=== PATIENT | female | born 1970 | race Caucasian/White ===

== ENCOUNTER → 2017-08-22 | Outpatient (CLI) | payer OTHER ==
--- NOTE | 2017-08-23 11:54 | MM ---
Reason for exam: screening (asymptomatic). Last mammogram was performed 2 years and 1 month ago. History: Took hormonal contraceptives for 2 years. Physical Findings: A clinical breast exam by your physician is recommended on an annual basis and results should be correlated with mammographic findings. MG Screening Mammo w CAD Bilateral CC and MLO view(s) were taken. Prior study comparison: August 04, 2015, bilateral MG screening mammo w CAD. July 09, 2014, bilateral MG screening mammo w CAD. The breast tissue is heterogeneously dense. This may lower the sensitivity of mammography. Finding: There are typically benign round calcifications in the right breast. There is no discrete abnormality. ASSESSMENT: Negative, BI-RAD 1 RECOMMENDATION: Routine screening mammogram of both breasts in 1 year.
== END | disposition home or self-care (01) ==
LOC: RADMAMWWP 09:47
PROVIDERS: ATTEND Family Medicine
DX: Z12.31 Encounter for screening mammogram for malignant neoplasm of breast (principal)
CPT/HCPCS: 77067

== ENCOUNTER → 2017-09-18 | Outpatient (CLI) | payer OTHER ==
[2017-09-18 07:43] LABS: Blood Urea Nitrogen 21 mg/dL (7-17)
--- NOTE | 2017-09-18 09:30 | CT ---
EXAMINATION TYPE: CT chest w con DATE OF EXAM: 09/18/2017 COMPARISON: NONE HISTORY: Cough for [address] DLP: 205 mGycm. Automated Exposure Control for Dose Reduction was Utilized. TECHNIQUE: CT scan of the thorax is performed following with IV Contrast, patient injected with 100 mL of Omnipaque 300. FINDINGS: LUNGS: Seen best on coronal images is calcified 3 mm right upper lung nodule on coronal image 54. The re is dependent atelectasis in both lower lobes. There is additional linear atelectasis in the left l carmen base. There is small degree of right basilar linear atelectasis or scarring laterally. There is n o suspicious noncalcified parenchymal nodule or mass. There is no pleural effusion or pneumothorax se en bilaterally. No suspicious consolidation is present. MEDIASTINUM: There are no greater than 1 cm hilar or mediastinal lymph nodes. No cardiomegaly or pe ricardial effusion is seen. There is moderate concentric wall thickening in the left mid esophagus ne ar axial image 19 at pericarinal/subcarinal level and moderate to severe wall thickening in the dista l esophagus just above diaphragmatic hiatus near axial image 45. OTHER: Cholecystectomy clips are present. There is partial visualization of surgical clips right kendell l fossa from nephrectomy. IMPRESSION: Attention to esophagus, consider multifocal esophagitis, neoplasm distally cannot be excl uded. Clinical correlation advised. Consider direct visualization to further evaluate. No suspicious acute pulmonary process is seen.
== END ==
LOC: RADCTMAIN 06:58
PROVIDERS: ATTEND Family Medicine
DX: R05 Cough (principal); Z79.899 Other long term (current) drug therapy
CPT/HCPCS: 82565; 84520; 71260; 36415; Q9967

== ENCOUNTER 2018-03-18 06:52 | Inpatient (IN) | payer OTHER ==
[2018-03-18] MEDS ORDERED: ONDANSETRON 4 MG/2 ML VIAL IVP STA (07:11)
[2018-03-18] MEDS ORDERED: LORazepam 2 MG/ML INJ IV STA (07:11)
[2018-03-18] MEDS ORDERED: SODIUM CHLORIDE 0.9% 1,000 ML IV STA (07:11)
--- NOTE | 2018-03-18 07:14 | ED ---
General Adult HPI - General Chief complaint: Abdominal Pain Stated complaint: abd pain Time Seen by Provider: 03/18/18 07:07 Source: patient, RN notes reviewed Mode of arrival: ambulatory Limitations: no limitations - History of Present Illness Initial comments: 48-year-old female presented to the emergency room today with a chief complaint of abdominal pain that started last night. Patient does admit that she's had several bouts of nausea vomiting. Does admit to pain throughout the abdomen both upper and lower. Patient does admit that she's had a few bowel movements that have not been diarrhea. Patient does admit to previous abdominal surgeries. Patient is a poor historian unable to explain exactly what surgeries were performed. Does admit to history of brain tumor. Patient denies any other complaints currently. Patient denies any recent fever, chills, shortness of breath, chest pain, back pain, numbness or tingling, dysuria or hematuria, constipation or diarrhea, headaches or visual changes, or any other complaints. - Related Data Home Medications Medication Instructions Recorded Confirmed HYDROcodone/APAP 7.5-325MG [[place] 1 tab PO TID PRN 03/18/18 03/18/18 7.5-325] Allergies Allergy/AdvReac Type Severity Reaction Status Date / Time vitamin b Allergy Rash/Hives Uncoded 03/18/18 07:07 Review of Systems ROS Statement: Those systems with pertinent positive or pertinent negative responses have been documented in the HPI. ROS Other: All systems not noted in ROS Statement are negative. 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 No nystagmus. There is normal conjunctiva bilaterally. No signs of icterus. Ears, nose, mouth and throat: There are moist mucous membranes and no oral lesions. Neck: The neck is supple, there is no tenderness or JVD. Cardiovascular: There is a regular rate and rhythm. No murmur, rub or gallop is appreciated. Respiratory: Lungs are clear to auscultation, respirations are non-labored, breath sounds are equal. No wheezes, stridor, rales, or rhonchi. Gastrointestinal: Abdomen soft on palpation. Tender palpation epigastric and lower quadrants both left and right. No rebound, guarding or CVA tenderness. Musculoskeletal: Normal ROM, no tenderness. Strength 5/5. Sensation intact. Pulses equal bilaterally 2+. Neurological: A&O x 3. CN II-XII intact, There are no obvious motor or sensory deficits. Coordination appears grossly intact. Speech is normal. Skin: Skin is warm and dry and no rashes or lesions are noted. Psychiatric: Cooperative. Limitations: no limitations Course Vital Signs 03/18/18 03/18/18 06:56 10:15 Temperature 97.8 F Pulse Rate 96 70 Respiratory 18 16 Rate Blood Pressure 134/85 102/57 O2 Sat by Pulse 100 99 Oximetry Medical Decision Making - Medical Decision Making Patient reexamined at this time shows no signs of distress. Patient is resting comfortably. Patient's positive and reviewed. Patient's CT of the abdomen and pelvis does show possible small bowel obstruction versus ileus. Patient does admit to a bowel movement earlier this morning. Patient's had multiple surgeries in the past. She admits out of [place], [place]. Patient will be admitted to the hospital for SBO. Patient has seen Dr. Gray in the past - Lab Data Result diagrams: 03/18/18 07:36 03/18/18 07:36 Lab Results 03/18/18 03/18/18 03/18/18 Range/Units 07:36 07:36 09:20 WBC 10.2 (3.8-10.6) k/uL RBC 5.24 (3.80-5.40) m/uL Hgb 15.2 (11.4-16.0) gm/dL Hct 45.9 (34.0-46.0) % MCV 87.6 (80.0-100.0) fL MCH 29.1 (25.0-35.0) pg MCHC 33.2 (31.0-37.0) g/dL RDW 12.9 (11.5-15.5) % Plt Count 330 (150-450) k/uL Neutrophils % 84 % Lymphocytes % 12 % Monocytes % 3 % Eosinophils % 0 % Basophils % 0 % Neutrophils # 8.5 H (1.3-7.7) k/uL Lymphocytes # 1.2 (1.0-4.8) k/uL Monocytes # 0.3 (0-1.0) k/uL Eosinophils # 0.0 (0-0.7) k/uL Basophils # 0.0 (0-0.2) k/uL Sodium 137 (137-145) mmol/L Potassium 5.1 (3.5-5.1) mmol/L Chloride 108 H (98-107) mmol/L Carbon Dioxide 19 L (22-30) mmol/L Anion Gap 10 mmol/L BUN 13 (7-17) mg/dL Creatinine 0.83 (0.52-1.04) mg/dL Est GFR (CKD-EPI)AfAm >90 (>60 ml/min/1.73 sqM) Est GFR (CKD-EPI)NonAf 84 (>60 ml/min/1.73 sqM) Glucose 161 H (74-99) mg/dL Calcium 10.0 (8.4-10.2) mg/dL Total Bilirubin 0.7 (0.2-1.3) mg/dL AST 38 H (14-36) U/L ALT 24 (9-52) U/L Alkaline Phosphatase 105 (38-126) U/L Total Protein 7.2 (6.3-8.2) g/dL Albumin 4.3 (3.5-5.0) g/dL Amylase 96 (30-110) U/L Lipase 146 (23-300) U/L Urine Color Urine Appearance (Clear) Urine pH (5.0-8.0) Ur Specific [place] (1.001-1.035) Urine Protein (Negative) Urine Glucose (UA) (Negative) Urine Ketones (Negative) Urine Blood (Negative) Urine Nitrite (Negative) Urine Bilirubin (Negative) Urine Urobilinogen (<2.0) mg/dL Ur Leukocyte Esterase (Negative) Urine HCG, Qual Not Detected (Not Detectd) 03/18/18 Range/Units 09:20 WBC (3.8-10.6) k/uL RBC (3.80-5.40) m/uL Hgb (11.4-16.0) gm/dL Hct (34.0-46.0) % MCV (80.0-100.0) fL MCH (25.0-35.0) pg MCHC (31.0-37.0) g/dL RDW (11.5-15.5) % Plt Count (150-450) k/uL Neutrophils % % Lymphocytes % % Monocytes % % Eosinophils % % Basophils % % Neutrophils # (1.3-7.7) k/uL Lymphocytes # (1.0-4.8) k/uL Monocytes # (0-1.0) k/uL Eosinophils # (0-0.7) k/uL Basophils # (0-0.2) k/uL Sodium (137-145) mmol/L Potassium (3.5-5.1) mmol/L Chloride (98-107) mmol/L Carbon Dioxide (22-30) mmol/L Anion Gap mmol/L BUN (7-17) mg/dL Creatinine (0.52-1.04) mg/dL Est GFR (CKD-EPI)AfAm (>60 ml/min/1.73 sqM) Est GFR (CKD-EPI)NonAf (>60 ml/min/1.73 sqM) Glucose (74-99) mg/dL Calcium (8.4-10.2) mg/dL Total Bilirubin (0.2-1.3) mg/dL AST (14-36) U/L ALT (9-52) U/L Alkaline Phosphatase (38-126) U/L Total Protein (6.3-8.2) g/dL Albumin (3.5-5.0) g/dL Amylase (30-110) U/L Lipase (23-300) U/L Urine Color Yellow Urine Appearance Clear (Clear) Urine pH 8.5 H (5.0-8.0) Ur Specific [place] >1.050 H (1.001-1.035) Urine Protein Trace H (Negative) Urine Glucose (UA) Negative (Negative) Urine Ketones 2+ H (Negative) Urine Blood Negative (Negative) Urine Nitrite Negative (Negative) Urine Bilirubin Negative (Negative) Urine Urobilinogen <2.0 (<2.0) mg/dL Ur Leukocyte Esterase Negative (Negative) Urine HCG, Qual (Not Detectd) Disposition Clinical Impression: SBO (small bowel obstruction) Disposition: ADMITTED IP TO THIS [facility] Condition: Good Is patient prescribed a controlled substance at d/c from ED?: No Referrals: Ivan Bartlett Jr, DO [Primary Care Provider] - 1-2 days Time of Disposition: 10:36
[2018-03-18 07:51] LABS: Basophils % (A) 0 %; Eosinophils % (A) 0 %; HCT 45.9 % (34.0-46.0); HGB 15.2 gm/dL (11.4-16.0); Lymphocytes # (A) 1.2 k/uL (1.0-4.8); Lymphocytes % (A) 12 %; MCH 29.1 pg (25.0-35.0); MCHC 33.2 g/dL (31.0-37.0); MCV 87.6 fL (80.0-100.0); Mean Platelet Volume 7.5; Monocytes # (A) 0.3 k/uL (0-1.0); Monocytes % (A) 3 %; Neutrophils # (A) 8.5 k/uL (1.3-7.7); Neutrophils % (A) 84 %; Platelet Count 330 k/uL (150-450); RBC 5.24 m/uL (3.80-5.40); RDW 12.9 % (11.5-15.5); WBC 10.2 k/uL (3.8-10.6)
[2018-03-18 08:05] LABS: ALT 24 U/L (9-52); AST 38 U/L (14-36); Albumin 4.3 g/dL (3.5-5.0); Alkaline Phosphatase 105 U/L (38-126); Amylase 96 U/L (30-110); Anion Gap 10 mmol/L; Carbon Dioxide 19 mmol/L (22-30); Chloride 108 mmol/L (98-107); Glucose 161 mg/dL (74-99); Lipase 146 U/L (23-300); Sodium 137 mmol/L (137-145); Total Bilirubin 0.7 mg/dL (0.2-1.3); Total Protein 7.2 g/dL (6.3-8.2)
[2018-03-18 08:09] LABS: Blood Urea Nitrogen 13 mg/dL (7-17); Potassium 5.1 mmol/L (3.5-5.1)
--- NOTE | 2018-03-18 09:23 | CT ---
EXAMINATION TYPE: CT abdomen pelvis w con DATE OF EXAM: 03/18/2018 COMPARISON: None INDICATION: Abd pain, vomiting DLP: 1287 mGycm, Automated exposure control for dose reduction was used. CONTRAST: 100 mL of Isovue 300. Study performed without Oral Contrast TECHNIQUE: Axial images were obtained from above the diaphragm to the pubic rami in the axial plane a t 5 mm thick sections. Reconstructed images are reviewed on the computer in the coronal plane. FINDINGS: Limited CT sections are obtained the lung bases. There is some compressive atelectasis within the de pendent portions of the lung bases bilaterally. Small hiatal hernia may be present. CT ABDOMEN: Liver: Normal Spleen: Normal Pancreas: Normal Adrenal glands: The adrenal glands are normal. Gallbladder: Normal Kidneys: There is been a right nephrectomy. Left kidney appears normal without masses cysts or hydron ephrosis. No hydroureter is evident. Aorta: Vascular calcification is within the aorta. Inferior vena cava: Normal. CT PELVIS: There are multiple dilated small bowel loops containing fluid. No zone of transition is evident. Term inal ileum is slightly prominent. Air fluid in some fecal debris is within the colon colon is somewha t decompressed. Findings appear more suggestive for ileus. Partial small bowel obstruction could be c onsidered. Appendix: Normal as visualized. Urinary bladder: Normal. Genitourinary structures: Uterus and adnexal regions appear normal. Small to moderate amount of free fluid is within the cul-de-sac. Osseous structures: No suspicious lytic or sclerotic lesions. IMPRESSIONS: 1. Prominence of fluid-filled small bowel loops. Correlate for ileus. Partial small bowel obstructio n could be within the differential. Follow-up is recommended. Report was called to the emergency room PA by Dr. Angel by telephone at the time of interpretation.
[2018-03-18 09:28] LABS: Appearance,Urine Clear (Clear); Bilirubin,Urine Negative (Negative); Blood,Urine Negative (Negative); Color,Urine Yellow; Glucose,Urine (UA) Negative (Negative); Ketones,Urine 2+ (Negative); Leukocyte Esterase,Urine Negative (Negative); Nitrite,Urine Negative (Negative); PH, Urine 8.5 (5.0-8.0); Protein,Urine Trace (Negative); Urobilinogen,Urine <2.0 mg/dL (<2.0)
[2018-03-18 09:37] LABS: Specific Gravity,Urine >1.050 (1.001-1.035)
[2018-03-18] MEDS ORDERED: NALOXONE 0.4 MG/ML 1 ML VIAL IV PRN (10:37)
[2018-03-18] MEDS ORDERED: SODIUM CHLORIDE 0.9% 1,000 ML IV ONE (10:37)
[2018-03-18] MEDS ORDERED: LORazepam 2 MG/ML INJ IV PRN (10:37)
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
[2018-03-18 15:41] VITALS: BMI 25.0
[2018-03-18] MEDS: MORPHINE SULFATE 4 MG/ML SYRINGE IV PRN ×3 (15:43→23:38)
[2018-03-18] MEDS: FAMOTIDINE 20 MG/2 ML VIAL IV SCH (19:36)
[2018-03-19] MEDS: MORPHINE SULFATE 4 MG/ML SYRINGE IV PRN (03:40)
[2018-03-19] MEDS: ONDANSETRON 4 MG/2 ML VIAL IVP PRN ×2 (07:11→16:58)
[2018-03-19 07:47] LABS: Basophils % (A) 1 %; Eosinophils # (A) 0.1 k/uL (0-0.7); Eosinophils % (A) 1 %; HCT 36.4 % (34.0-46.0); Lymphocytes # (A) 2.2 k/uL (1.0-4.8); Lymphocytes % (A) 38 %; MCH 30.1 pg (25.0-35.0); MCHC 32.7 g/dL (31.0-37.0); Mean Platelet Volume 6.8; Monocytes # (A) 0.3 k/uL (0-1.0); Monocytes % (A) 5 %; Neutrophils # (A) 3.1 k/uL (1.3-7.7); Neutrophils % (A) 54 %; Platelet Count 210 k/uL (150-450); RBC 3.96 m/uL (3.80-5.40); RDW 13.7 % (11.5-15.5); WBC 5.8 k/uL (3.8-10.6)
[2018-03-19 07:50] LABS: ALT 27 U/L (9-52); AST 22 U/L (14-36); Alkaline Phosphatase 69 U/L (38-126); Anion Gap 5 mmol/L; Blood Urea Nitrogen 9 mg/dL (7-17); Calcium 8.4 mg/dL (8.4-10.2); Carbon Dioxide 22 mmol/L (22-30); Chloride 112 mmol/L (98-107); Glucose 85 mg/dL (74-99); HGB 11.9 gm/dL (11.4-16.0); Potassium 4.1 mmol/L (3.5-5.1); Sodium 139 mmol/L (137-145); Total Bilirubin 0.3 mg/dL (0.2-1.3); Total Protein 5.1 g/dL (6.3-8.2)
[2018-03-19] MEDS: FAMOTIDINE 20 MG/2 ML VIAL IV SCH ×2 (08:43→20:35)
--- NOTE | 2018-03-19 09:14 | XR ---
EXAMINATION TYPE: XR abdomen 2V DATE OF EXAM: 03/19/2018 COMPARISON: NONE HISTORY: Abdominal pain TECHNIQUE: One view abdominal series FINDINGS: The osseous structures are intact. The bowel gas pattern is nonspecific. Air seen throughout both sm all and large bowel loops in a nonspecific pattern. Lung bases are clear. Surgical clips in the abdo men are noted. Hypertrophic and degenerative change of the lumbar spine. IMPRESSION: 1. Nonspecific abdomen.
--- NOTE | 2018-03-19 12:39 | XR ---
EXAMINATION TYPE: XR chest 2V DATE OF EXAM: 03/19/2018 COMPARISON: 09/18/2017 TECHNIQUE: PA and lateral views submitted. HISTORY: Shortness of breath and chest pain FINDINGS: The lungs are clear and there is no pneumothorax, pleural effusion, or focal pneumonia. Suggestion of tiny granuloma right upper lobe. IMPRESSION: 1. No acute process.
[2018-03-19] MEDS ORDERED: HYDROmorphone 1 MG/ML 1 ML SYRINGE IVP PRN (12:46)
--- NOTE | 2018-03-19 13:05 | P.PN ---
Subjective Progress Note Date: 03/19/18 Principal diagnosis: Bowel obstruction Patient says her pain is slightly more today. She is however passing flatus. No bowel movement. Denies nausea or vomiting. She is hungry. Today's x-rays are nonspecific. Objective - Vital Signs Vital signs: Vital Signs Temp 96.9 F L 03/19/18 07:00 Pulse 69 03/19/18 07:00 Resp 16 03/19/18 07:00 BP 113/74 03/19/18 07:00 Pulse Ox 99 03/19/18 07:00 Intake & Output 03/18/18 03/19/18 03/19/18 18:59 06:59 18:59 Intake Total 1600 Balance 1600 Weight 72.575 kg Intake: Intake, IV Titration 1600 Amount Sodium Chloride 0.9% 1, 1600 000 ml @ 100 mls/hr IV . Q10H ONE Rx#:[id number] Other: Voiding Method Toilet # Voids 3 - Exam Abdomen: Soft, nondistended, minimal bilateral lower quadrant tenderness - Labs CBC & Chem 7: 03/19/18 06:47 03/19/18 06:47 Labs: Abnormal Lab Results - Last 24 Hours (Table) 03/19/18 Range/Units 06:47 Chloride 112 H (98-107) mmol/L Total Protein 5.1 L (6.3-8.2) g/dL Albumin 3.0 L (3.5-5.0) g/dL Assessment and Plan (1) SBO (small bowel obstruction) Narrative/Plan: Begin clear liquid diet. Ambulate. Will follow. Current Visit: Yes Status: Acute Code(s): K56.609 - UNSP INTESTNL OBST, UNSP TO PARTIAL VERSUS COMPLETE OBST SNOMED Code(s): 156996909
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
[2018-03-19] MEDS ORDERED: HYDROmorphone 1 MG/ML 1 ML SYRINGE IVP ONE (14:11)
[2018-03-19] MEDS: HYDROcodone/APAP 7.5-325MG 1 EACH TAB PO PRN (16:23)
[2018-03-19] MEDS: SODIUM CHLORIDE 0.9% 1,000 ML IV SCH (18:59)
[2018-03-20] MEDS: SODIUM CHLORIDE 0.9% 1,000 ML IV SCH (05:11)
[2018-03-20] MEDS: FAMOTIDINE 20 MG/2 ML VIAL IV SCH (08:50)
[2018-03-20] MEDS: HYDROcodone/APAP 7.5-325MG 1 EACH TAB PO PRN (08:51)
[2018-03-20 10:00] VITALS: BP 120/78; PULSE 88; RESP 18; TEMP 97
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
--- NOTE | 2018-03-20 14:58 | P.PN ---
Subjective Progress Note Date: 03/20/18 Principal diagnosis: Bowel obstruction Patient doing well today. Denies pain currently. Tolerating solid foods. Passing gas but no bowel movement. Objective - Vital Signs Vital signs: Vital Signs Temp 97.0 F L 03/20/18 09:00 Pulse 88 03/20/18 09:00 Resp 18 03/20/18 09:00 BP 120/78 03/20/18 09:00 Pulse Ox 99 03/20/18 09:00 Intake & Output 03/19/18 03/20/18 03/20/18 18:59 06:59 18:59 Intake Total 1650 1350 Balance 1650 1350 Intake: Intake, IV Titration 1600 700 Amount Sodium Chloride 0.9% 1, 1600 700 000 ml @ 100 mls/hr IV . Q10H KIZZY Rx#:[id number] Oral 650 Other 50 Other: # Voids 1 3 2 - Exam Abdomen: Soft, nondistended, nontender - Labs CBC & Chem 7: 03/19/18 06:47 03/19/18 06:47 Assessment and Plan (1) SBO (small bowel obstruction) Narrative/Plan: Continue diet as tolerated. Stable for discharge as already planned. Patient was informed that she should return to the hospital if her symptoms recur given the findings of small bowel obstruction on initial CAT scan. Status: Acute Code(s): K56.609 - UNSP INTESTNL OBST, UNSP TO PARTIAL VERSUS COMPLETE OBST SNOMED Code(s): 612313934
== END 2018-03-20 14:00 | disposition home or self-care (01) | DRG 390 ==
LOC: EC 06:52 → 3SUR 11:00
PROVIDERS: ADMIT Family Medicine; ATTEND Family Medicine
DX: K56.600 Partial intestinal obstruction, unspecified as to cause (principal); J84.10 Pulmonary fibrosis, unspecified; K52.9 Noninfective gastroenteritis and colitis, unspecified; Z86.59 Personal history of other mental and behavioral disorders; Z86.011 Personal history of benign neoplasm of the brain; Z87.891 Personal history of nicotine dependence; Z88.8 Allergy status to other drugs, medicaments and biological substances; Z82.3 Family history of stroke; Z80.9 Family history of malignant neoplasm, unspecified
CPT/HCPCS: 36415; 71046; 74019; 74177; 80053; 81003; 81025; 82150; 83690; 85025; 96361; 96374; 96375; 99285

== ENCOUNTER → 2018-08-25 | Outpatient (CLI) | payer OTHER ==
--- NOTE | 2018-08-31 10:12 | MM ---
Reason for exam: screening (asymptomatic). Last mammogram was performed 1 year ago. History: Took hormonal contraceptives for 2 years. MG Screening Mammo w CAD Bilateral CC and MLO view(s) were taken. Prior study comparison: August 22, 2017, bilateral MG screening mammo w CAD. August 04, 2015, bilateral MG screening mammo w CAD. There are scattered fibroglandular densities. No significant changes when compared with prior studies. ASSESSMENT: Negative, BI-RAD 1 RECOMMENDATION: Routine screening mammogram of both breasts in 1 year.
== END ==
LOC: RADMAMWWP 16:49
PROVIDERS: ATTEND Family Medicine
DX: Z12.31 Encounter for screening mammogram for malignant neoplasm of breast (principal)
CPT/HCPCS: 77067

== ENCOUNTER → 2019-06-19 | Outpatient (CLI) | payer OTHER ==
[2019-06-19 19:33] LABS: African American GFR (CKD) 76.1 (60.0-200.0)
== END | disposition home or self-care (01) ==
LOC: LABWHC1 07:58
PROVIDERS: ATTEND Specialist
DX: D32.9 Benign neoplasm of meninges, unspecified (principal)
CPT/HCPCS: 36415; 82565; 84520

== ENCOUNTER → 2019-07-31 | Outpatient (CLI) | payer OTHER ==
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
== END | disposition home or self-care (01) ==
LOC: RADXRMAIN 10:11
PROVIDERS: ATTEND Family Medicine
DX: M25.512 Pain in left shoulder (principal); R07.82 Intercostal pain

== ENCOUNTER → 2019-08-28 | Outpatient (CLI) | payer OTHER ==
--- NOTE | 2019-08-31 13:16 | MM ---
Reason for exam: screening (asymptomatic). Last mammogram was performed 1 year ago. History: Patient is postmenopausal. Took hormonal contraceptives for 2 years. Physical Findings: A clinical breast exam by your physician is recommended on an annual basis and results should be correlated with mammographic findings. MG Screening Mammo w CAD Bilateral CC and MLO view(s) were taken. Prior study comparison: August 25, 2018, bilateral MG screening mammo w CAD. August 22, 2017, bilateral MG screening mammo w CAD. The breast tissue is heterogeneously dense. This may lower the sensitivity of mammography. No suspicious abnormality. No significant changes when compared with prior studies. ASSESSMENT: Negative, BI-RAD 1 RECOMMENDATION: Routine screening mammogram of both breasts in 1 year.
== END | disposition home or self-care (01) ==
LOC: RADMAMWWP 11:17
PROVIDERS: ATTEND Family Medicine
DX: Z12.31 Encounter for screening mammogram for malignant neoplasm of breast (principal)
CPT/HCPCS: 77067

== ENCOUNTER → 2020-07-04 | Outpatient (CLI) | payer OTHER ==
[2020-07-04 15:32] LABS: African American GFR (CKD) 75.5 (60.0-200.0); Non-African American GFR(CKD) 65.2 (60.0-200.0)
== END | disposition home or self-care (01) ==
LOC: LABWHC1 08:17
PROVIDERS: ATTEND Specialist
DX: D32.9 Benign neoplasm of meninges, unspecified (principal)
CPT/HCPCS: 36415; 82565; 84520

== ENCOUNTER → 2020-08-29 | Outpatient (CLI) | payer OTHER ==
--- NOTE | 2020-08-30 10:16 | MM ---
Reason for exam: screening (asymptomatic). Last mammogram was performed 1 year ago. History: Patient is postmenopausal. Took hormonal contraceptives for 2 years. Physical Findings: A clinical breast exam by your physician is recommended on an annual basis and results should be correlated with mammographic findings. MG Screening Mammo w CAD Bilateral CC and MLO view(s) were taken. Prior study comparison: August 28, 2019, bilateral MG screening mammo w CAD. August 25, 2018, bilateral MG screening mammo w CAD. The breast tissue is heterogeneously dense. This may lower the sensitivity of mammography. Benign appearing calcifications in the right breast. ASSESSMENT: Benign, BI-RAD 2 RECOMMENDATION: Routine screening mammogram of both breasts in 1 year.
== END | disposition home or self-care (01) ==
LOC: RADMAMWWP 10:23
PROVIDERS: ATTEND Family Medicine
DX: Z12.31 Encounter for screening mammogram for malignant neoplasm of breast (principal)
CPT/HCPCS: 77067

== ENCOUNTER → 2021-08-24 | Outpatient (CLI) | payer OTHER ==
--- NOTE | 2021-08-25 07:38 | CT ---
EXAMINATION TYPE: CT abdomen pelvis w con DATE OF EXAM: 08/24/2021 HISTORY: left flank pain. History of single kidney. CT DLP: 429.2mGycm Automated Exposure Control for Dose Reduction was Utilized. CONTRAST: CT scan of the abdomen and pelvis is performed with oral and with IV Contrast, patient injected with 100 mL of Isovue 300. COMPARISON: CT abdomen and pelvis March 18, 2018 FINDINGS: LUNG BASES: Mild left basilar linear scarring and/or atelectasis. LIVER/GB: Contracted gallbladder current study. No new biliary dilatation. PANCREAS: No significant abnormality is seen. SPLEEN: No significant abnormality is seen. ADRENALS: No significant abnormality is seen. KIDNEYS: Right kidney is surgically absent. Streak artifact from metallic clips at this level redemon strated. Satisfactory cortical medullary uptake and excretion from the left kidney with new moderate left-sided hydronephrosis but no hydroureter or obstructing calculus identified. BOWEL: Oral contrast does not reach level of the terminal ileum. This makes evaluation of distal mirela l somewhat suboptimal. In addition patient has little intra-abdominal fat making evaluation suboptima l. No suspicious small or large bowel dilatation. UTERUS/ADNEXA: Anteverted uterus redemonstrated. LYMPH NODES: No greater than 1cm abdominal or pelvic lymph nodes are appreciated. OSSEOUS STRUCTURES: Persistent slight scoliotic curvature lower lumbar spine. Persistent severe disc space narrowing with endplate sclerosis right L4-L5 level. Persistent moderate to severe disc space n arrowing with vacuum disc phenomenon at the left L5-S1 level. OTHER: No significant additional abnormality is seen. IMPRESSION: New moderate left-sided hydronephrosis without hydroureter or obstructing ureter mass or calculus. Consider reflux?. Normal excretion is noted. No acute findings are evident to account for p lizeth's clinical symptoms.
== END | disposition home or self-care (01) ==
LOC: RADCTMAIN 16:09
PROVIDERS: ATTEND Family Medicine
DX: N13.30 Unspecified hydronephrosis (principal)
CPT/HCPCS: 82565; 84520; 74177; 36415; Q9967

== ENCOUNTER → 2021-10-06 | Outpatient (CLI) | payer OTHER ==
--- NOTE | 2021-10-10 08:55 | MM ---
Reason for exam: screening (asymptomatic). Last mammogram was performed 1 year and 1 month ago. History: Patient is postmenopausal. Took hormonal contraceptives for 2 years. Physical Findings: A clinical breast exam by your physician is recommended on an annual basis and results should be correlated with mammographic findings. MG 3D Screening Mammo W/Cad Bilateral CC and MLO view(s) were taken. Prior study comparison: August 29, 2020, bilateral MG screening mammo w CAD. August 28, 2019, bilateral MG screening mammo w CAD. The breast tissue is heterogeneously dense. This may lower the sensitivity of mammography. No significant changes when compared with prior studies. ASSESSMENT: Benign, BI-RAD 2 RECOMMENDATION: Routine screening mammogram of both breasts in 1 year.
== END | disposition home or self-care (01) ==
LOC: RADMAMWWP 11:36
PROVIDERS: ATTEND Family Medicine
DX: Z12.31 Encounter for screening mammogram for malignant neoplasm of breast (principal); Z78.0 Asymptomatic menopausal state
CPT/HCPCS: 77063; 77067

== ENCOUNTER → 2021-12-22 | Outpatient (CLI) | payer OTHER ==
--- NOTE | 2021-12-22 09:00 | US ---
EXAMINATION TYPE: US kidneys/renal and bladder DATE OF EXAM: 12/22/2021 COMPARISON: CT 08/24/2021 CLINICAL HISTORY: N13.39 Hydronephrosis. EXAM MEASUREMENTS: Right Kidney: Surgically absent Left Kidney: 14.3 x 4.9 x 5.3 cm Post Void Residual Volume: 6.47 mL Right Kidney: Surgically absent Left Kidney: hydroureter noted even post void Bladder: wnl Bilateral Jets seen: left jet seen Normal Post Void Residual: Yes IMPRESSION: Left-sided hydroureter noted.
== END | disposition home or self-care (01) ==
LOC: RADUSWWP 08:24
DX: N13.4 Hydroureter (principal)
CPT/HCPCS: 76770

== ENCOUNTER → 2022-03-26 | Outpatient (CLI) | payer OTHER ==
--- NOTE | 2022-03-30 19:19 | MR ---
EXAMINATION TYPE: MR brain wo/w con DATE OF EXAM: 03/26/2022 COMPARISON: 05/25/2015, 08/24/2020 HISTORY: Yearly f/u, BENIGN NEOPLASM OF MENINGES, UNSPECIFIED CONTRAST: Performed utilizing 6 mL intravenous Gadavist gadolinium contrast. TECHNIQUE: Multiplanar, multiecho imaging on a 3.0 Julianne magnet is performed through the brain. Stud y is performed within 24 hours of arrival to the hospital. The craniovertebral junction is normal. The pituitary is normal. Diffusion-weighted imaging is performed. No abnormal hyperintensity is present to suggest an acute i ntracranial infarct or acute ischemic change. There is a 1.6 x 1.6 cm meningioma along the right frontal region. There is a 1.6 x 1.0 cm meningioma along the right parietal region. This measures 1.3 cm AP and is st able from comparison. There is a 1.9 x 1.7 cm left cerebellar pontine angle meningioma. This may have extension towards the internal auditory canal. There is a 0.7 cm enhancing lesion along the inferior right falx. These have enhancement in the extra-axial space and have displacement of the adjacent brain. No signi ficant edema is within the brain. Postsurgical changes remain present within the left mastoid air cell region and left temporal region. There is some encephalomalacia of the adjacent left temporal lobe. Ventricles and sulci remain stable over the interval. Note temporal horn dilatation is evident. Signa l within the remaining portions of the brain appears normal. IMPRESSIONS: 1. Multiple bilateral enhancing lesions compatible with meningiomas discussed above. No interval grow th is evident. No significant mass effect on the adjacent brain is evident. The cerebellar pontine an gle postsurgical changes remain stable
== END | disposition home or self-care (01) ==
LOC: RADMRIMAIN 09:27
PROVIDERS: ATTEND Specialist
DX: D32.9 Benign neoplasm of meninges, unspecified (principal); G93.89 Other specified disorders of brain
CPT/HCPCS: 70553; A9585

== ENCOUNTER → 2022-11-01 | Outpatient (CLI) | payer OTHER ==
--- NOTE | 2022-11-01 12:40 | MM ---
Reason for Exam: Screening (asymptomatic). Last mammogram was performed 1 year(s) and 1 month(s) ago. Patient History: Menarche at age 11. First Full-Term at age 15. Postmenopausal. Patient used Hormonal Contraceptives for 2 years. Risk Values: Angela 5 year model risk: 0.8%. NCI Lifetime model risk: 6.2%. Prior Study Comparison: 08/28/2019 Bilateral Screening Mammogram, [facility]. 08/29/2020 Bilateral Screening Mammogram, [facility]. 10/06/2021 Bilateral Screening Mammogram, [facility]. Tissue Density: There are scattered fibroglandular densities. Findings: Analyzed By CAD. There is no suspicious group of microcalcifications or new suspicious mass in either breast. Overall Assessment: Negative, BI-RAD 1 Management: Screening Mammogram of both breasts in 1 year. A clinical breast exam by your physician is recommended on an annual basis and results should be correlated with mammographic findings. [facility] will attempt to contact patient to return for supplemental views and ultrasound if indicated. Electronically signed and approved by: Ministerio Bauman DO
== END | disposition home or self-care (01) ==
LOC: RADMAMWWP 09:41
PROVIDERS: ATTEND Family Medicine
DX: Z12.31 Encounter for screening mammogram for malignant neoplasm of breast (principal); Z78.0 Asymptomatic menopausal state
CPT/HCPCS: 77063; 77067

== ENCOUNTER → 2022-11-06 | Outpatient (CLI) | payer OTHER ==
--- NOTE | 2022-11-06 13:44 | BD ---
EXAMINATION TYPE: Axial Bone Density DATE OF EXAM: 11/06/2022 CLINICAL HISTORY: 52 year old Female. ICD-10 CODE: Z13.820 screening Height: 66 Weight: 139.7 FRAX RISK QUESTIONS: Alcohol (3 or more units per day): no Family History (Parent hip fracture): no Glucocorticoids (More than 3mos): no (Ex: prednisone, prednisolone, methylprednisolone, dexamethasone, and hydrocortisone). History of Fracture in Adulthood: no Secondary Osteoporosis: 1. Type 1 Diabetes: no 2. Hyperthyroidism: no 3. Menopause before 45: no 4. Malnutrition: no 5. Chronic liver disease: no Rheumatoid Arthritis: no Current Tobacco Use: no RISK FACTORS HISTORY OF: Surgery to Spine/Hip(right/left)/Wrist (right/left): no Family History of Osteoporosis: no Active: yes Diet low in dairy products/other sources of calcium: yes Postmenopausal woman: yes Lost more than 2 inches in height since high school: no MEDICATIONS: Additional History: EXAM MEASUREMENTS: Bone mineral densitometry was performed using the [employer] System. Bone mineral density as measured about the Lumbar spine is: ----- L1-L4(G/cm2): 1.094 T Score Values are as follows: ----- L1: -1.8 ----- L2: -0.9 ----- L3: 0.0 ----- L4: -0.5 ----- L1-L4: -0.7 Z Score Values are as follows: ----- L1: -1.0 ----- L2: -0.2 ----- L3: 0.7 ----- L4: 0.3 ----- L1-L4: 0.0 Bone mineral density : baseline Bone mineral density about the R hip (g/cm2): 0.768 Bone mineral density about the L hip (g/cm2): 0.793 T Score values are as follows: -----R Neck: -2.0 -----L Neck: -1.6 -----R Total: -1.9 -----L Total: -1.1 Z Score values are as follows: -----R Neck: -1.0 -----L Neck: -0.7 -----R Total: -1.3 -----L Total: -1.1 Bone mineral density: baseline FRAX%s: The graph provided illustrates a 6.8% chance for a major osteoporotic fx and a 0.9% chance fo r the hips probability for fx in 10 years time. IMPRESSION: Osteopenia (T Score between -2.5 and -1). There is slightly increased risk of fracture and the patient may be considered for treatment. Re-Screen 2-5 years. NOTE: T-SCORE=SD OF THE YOUNG ADULT MEAN.
== END | disposition home or self-care (01) ==
LOC: RADBDWWP 13:11
PROVIDERS: ATTEND Family Medicine
DX: Z13.820 Encounter for screening for osteoporosis (principal); M85.89 Other specified disorders of bone density and structure, multiple sites; Z78.0 Asymptomatic menopausal state
CPT/HCPCS: 77080

== ENCOUNTER → 2023-04-16 | Outpatient (CLI) | payer OTHER ==
--- NOTE | 2023-04-16 22:48 | MR ---
EXAMINATION TYPE: MR brain wo/w con DATE OF EXAM: 04/16/2023 COMPARISON: Most recent MRI brain March 26, 2022 HISTORY: Hx of benign tumors, evaluate for reoccurring, dizziness, hearing loss left side, left side of face, tongue numb TECHNIQUE: Multiplanar, multisequence images of the brain and brainstem is performed without and with IV contras t, utilizing 6.5 mL intravenous Gadavist . FINDINGS: Diffusion weighted images demonstrate no evidence of a recent infarct or other diffusion ab normality. There is redemonstration artifact from prior intracranial surgery near the posterior tempo ral lobe and superior aspect of the left cerebellum. There is resection cavity and areas of encephalo malacia redemonstrated. There is persistent enhancing mass or meningioma in the left cerebellopontine angle measuring 2.0 x 1.7 cm axial image 52 not significantly changed from prior study. There is sta ble 1.4 x 1.0 cm right frontoparietal junction meningioma axial image 92. There is more superior stab le 1.9 cm right frontal meningioma axial image 121. There is stable 9 mm inferior right frontal menin gioma axial image 67 along the anterior falx. No new enhancing masses are seen. Increased fluid signa l left mastoid air cells redemonstrated. Midline structures redemonstrate normal morphology. The craniocervical junction remains within simone l limits. The dural venous sinuses remaining patent. The visualized sinuses are clear and the globes are intact. IMPRESSION: No significant change from most recent prior MRI. Stable enhancing masses or meningioma i s redemonstrated. Stable postsurgical change and adjacent encephalomalacia near the junction of the l eft posterior temporal lobe and left cerebellum.
== END | disposition home or self-care (01) ==
LOC: RADMRIMAIN 21:45
PROVIDERS: ATTEND Specialist
DX: D32.9 Benign neoplasm of meninges, unspecified (principal); G93.89 Other specified disorders of brain
CPT/HCPCS: 70553; A9585

== ENCOUNTER 2023-09-16 11:10 | Emergency (ER) | payer OTHER ==
--- NOTE | 2023-09-16 12:52 | ED ---
Abdominal Pain HPI - General Chief Complaint: Abdominal Pain Stated Complaint: abd pain Time Seen by Provider: 09/16/23 12:15 Source: patient Mode of arrival: ambulatory Limitations: no limitations - History of Present Illness Initial Comments: 53-year-old female who presents emergency department with lower pelvic pain. States that her pain has been going on for the past couple of days. She is concerned that it is related to the herpes virus as she was diagnosed with genital herpes several years ago. She normally takes acyclovir 3 times daily however they recently cut her dose to once daily. She believes that the virus is now spreading due to the lower dose. She denies any vaginal lesions at this time. No vaginal discharge or bleeding. Denies dysuria, hematuria or difficulty voiding. Denies diarrhea, has patient, black or bloody stools. No fevers. Patient does mention a sore noted on her left maxilla which started draining yesterday. no other alleviating, precipitating or modifying factors - Related Data Home Medications Medication Instructions Recorded Confirmed Ativan (Unknown Dose) 1 tab PO DAILY PRN 09/23/23 09/23/23 Calcium, Magnesium, Zinc 1 tab PO DAILY 09/23/23 09/23/23 Fish Oil (Unknown Dose) 1 tab PO DAILY 09/23/23 09/23/23 Multivitamin (No Iron) 1 tab PO DAILY 09/23/23 09/23/23 [place] 1 tab PO DAILY 09/23/23 09/23/23 Probiotic/Prebiotic Fiber 1 tab PO DAILY 09/23/23 09/23/23 Vitamin C (Unknown Dose) 1 tab PO DAILY 09/23/23 09/23/23 Vitamin D3 (Unknown Dose) 1 tab PO DAILY 09/23/23 09/23/23 Vitamin K2 (Unknown Dose) 1 tab PO DAILY 09/23/23 09/23/23 Previous Rx's Medication Instructions Recorded Amoxic-Pot Clav 875-125Mg 1 tab PO BID 1 Days #14 tab 09/16/23 [Augmentin 875-125] Allergies Allergy/AdvReac Type Severity Reaction Status Date / Time vitamin b Allergy Rash/Hives Uncoded 09/23/23 08:55 Review of Systems ROS Statement: Those systems with pertinent positive or pertinent negative responses have been documented in the HPI. ROS Other: All systems not noted in ROS Statement are negative. Past Medical History Additional Past Medical History / Comment(s): clavical tumors, brain tumors, Herpes History of Any Multi-Drug Resistant Organisms: None Reported Additional Past Surgical History / Comment(s): Brain surgery, Patient states "head to toe surgery" Past Psychological History: Depression Smoking Status: Never smoker Past Alcohol Use History: None Reported Past Drug Use History: Marijuana - Past Family History Mother Family Medical History: CVA/TIA Father Family Medical History: Cancer General Exam Limitations: no limitations General appearance: alert, in no apparent distress Head exam: Present: atraumatic, other (Chronic left-sided facial droop) Eye exam: Present: normal appearance, PERRL, EOMI. Absent: scleral icterus, conjunctival injection, periorbital swelling ENT exam: Present: mucous membranes moist, other (Draining dental abscess above the left maxillary incisor) Neck exam: Present: normal inspection. Absent: tenderness, meningismus, lymphadenopathy Respiratory exam: Present: normal lung sounds bilaterally. Absent: respiratory distress, wheezes, rales, rhonchi, stridor Cardiovascular Exam: Present: regular rate, normal rhythm, normal heart sounds. Absent: systolic murmur, diastolic murmur, rubs, gallop, clicks GI/Abdominal exam: Present: soft, normal bowel sounds. Absent: distended, tenderness, guarding, rebound, rigid Extremities exam: Present: normal inspection, full ROM, normal capillary refill. Absent: tenderness, pedal edema, joint swelling, calf tenderness Back exam: Present: normal inspection Neurological exam: Present: alert, oriented X3, CN II-XII intact Psychiatric exam: Present: normal affect, normal mood Skin exam: Present: warm, dry, intact, normal color. Absent: rash Course Vital Signs 09/16/23 09/16/23 11:28 16:30 Temperature 98.4 F 98.0 F Pulse Rate 99 74 Respiratory 20 16 Rate Blood Pressure 132/64 116/75 O2 Sat by Pulse 97 98 Oximetry Medical Decision Making - Medical Decision Making Was pt. sent in by a medical professional or institution (, PA, FUEL TRUCK DRIVER, urgent care, hospital, or alf...) When possible be specific @ -No Did you speak to anyone other than the patient for history (EMS, parent, family, police, friend...)? What history was obtained from this source @ -No Did you review nursing and triage notes (agree or disagree)? Why? @ -I reviewed and agree with nursing and triage notes Were old charts reviewed (outside hosp., previous admission, EMS record, old EKG, old radiological studies, urgent care reports/EKG's, alf records)? Report findings @ -No old charts were reviewed Differential Diagnosis (chest pain, altered mental status, abdominal pain women, abdominal pain men, vaginal bleeding, weakness, fever, dyspnea, syncope, headache, dizziness, GI bleed, back pain, seizure, CVA, palpatations, mental health, musculoskeletal)? @ -Differential Abdominal Pain Women: Appendicitis, Cholecystitis, diverticulosis, ischemic bowel, pancreatitis, hepatitis, UTI, gastroenteritis, AAA, incarcerated hernia, bowel obstruction, constipation, inflammatory bowel, hepatitis, peptic ulcer disease, splenic infarction, perforated viscus, vulvitis, ovarian torsion, PID, kidney stone, placenta abruption, this is not meant to be an all-inclusive list EKG interpreted by me (3pts min.). @ -Not done X-rays interpreted by me (1pt min.). @ -None done CT interpreted by me (1pt min.). @ -None done U/S interpreted by me (1pt. min.). @ -Yes and demonstrates no acute process What testing was considered but not performed or refused? (CT, X-rays, U/S, labs)? Why? @ -None What meds were considered but not given or refused? Why? @ -None Did you discuss the management of the patient with other professionals (professionals i.e. DrLesvia, PA, FUEL TRUCK DRIVER, lab, RT, psych nurse, social worker assistant, central service supply distributor, teacher, chief environmental commitment officer, case management director)? Give summary @ -No Was smoking cessation discussed for >3mins.? @ -No Was critical care preformed (if so, how long)? @ -No Were there social determinants of health that impacted care today? How? (Homelessness, low income, unemployed, alcoholism, drug addiction, transportation, low edu. Level, literacy, decrease access to med. care, usp, rehab)? @ -No Was there de-escalation of care discussed even if they declined (Discuss DNR or withdrawal of care, Hospice)? DNR status @ -No What co-morbidities impacted this encounter? (DM, HTN, Smoking, COPD, CAD, Cancer, CVA, ARF, Chemo, Hep., AIDS, mental health diagnosis, sleep apnea, morbid obesity)? @ -Herpes simplex Was patient admitted / discharged? Hospital course, mention meds given and route, prescriptions, significant lab abnormalities, going to OR and other pertinent info. @ -Upon arrival patient was placed into room 29. Thorough history and physical exam was performed. Laboratory studies are conducted. Patient does go for ultrasound of her abdomen. Upon return the results they are discussed with the patient. I did discuss the diagnosis, differential and treatment options. Patient will be placed on amoxicillin for dental abscess which is actively draining. Instructed to follow-up with her primary care doctor in regards to her abdominal pain. Return for any new or worsening symptoms Undiagnosed new problem with uncertain prognosis? @ -No Drug Therapy requiring intensive monitoring for toxicity (Heparin, Nitro, Insulin, Cardizem)? @ -No Were any procedures done? @ -No Diagnosis/symptom? @ -Acute dental abscess, acute lower abdominal pain Acute, or Chronic, or Acute on Chronic? @ -Acute Uncomplicated (without systemic symptoms) or Complicated (systemic symptoms)? @ -Complicated Side effects of treatment? @ -No Exacerbation, Progression, or Severe Exacerbation? @ -No Poses a threat to life or bodily function? How? (Chest pain, USA, DC, pneumonia, PE, COPD, DKA, ARF, appy, cholecystitis, CVA, Diverticulitis, Homicidal, Suicidal, threat to staff... and all critical care pts) @ -No - Lab Data Result diagrams: 09/16/23 13:01 09/16/23 13:01 Lab Results 09/16/23 09/16/23 09/16/23 Range/Units 13:01 13:01 13:01 WBC 5.8 (3.8-10.6) k/uL RBC 4.06 (3.80-5.40) m/uL Hgb 12.6 (11.4-16.0) gm/dL Hct 37.1 (34.0-46.0) % MCV 91.4 (80.0-100.0) fL MCH 31.0 (25.0-35.0) pg MCHC 33.9 (31.0-37.0) g/dL RDW 12.3 (11.5-15.5) % Plt Count 279 (150-450) k/uL MPV 7.3 Neutrophils % 63 % Lymphocytes % 26 % Monocytes % 6 % Eosinophils % 1 % Basophils % 1 % Neutrophils # 3.7 (1.3-7.7) k/uL Lymphocytes # 1.5 (1.0-4.8) k/uL Monocytes # 0.3 (0-1.0) k/uL Eosinophils # 0.1 (0-0.7) k/uL Basophils # 0.0 (0-0.2) k/uL Sodium 138 (137-145) mmol/L Potassium 4.1 (3.5-5.1) mmol/L Chloride 105 (98-107) mmol/L Carbon Dioxide 26 (22-30) mmol/L Anion Gap 7 mmol/L BUN 12 (7-17) mg/dL Creatinine 0.69 (0.52-1.04) mg/dL Est GFR (CKD-EPI)AfAm >90 (>60 ml/min/1.73 sqM) Est GFR (CKD-EPI)NonAf >90 (>60 ml/min/1.73 sqM) Glucose 95 (74-99) mg/dL Calcium 9.3 (8.4-10.2) mg/dL Total Bilirubin 0.4 (0.2-1.3) mg/dL AST 46 H (14-36) U/L ALT 40 H (4-34) U/L Alkaline Phosphatase 108 (38-126) U/L Total Protein 6.9 (6.3-8.2) g/dL Albumin 3.9 (3.5-5.0) g/dL Lipase 80 (23-300) U/L Urine Color Yellow Urine Appearance Clear (Clear) Urine pH 5.5 (5.0-8.0) Ur Specific [place] 1.028 (1.001-1.035) Urine Protein Trace H (Negative) Urine Glucose (UA) Negative (Negative) Urine Ketones Negative (Negative) Urine Blood Negative (Negative) Urine Nitrite Negative (Negative) Urine Bilirubin Negative (Negative) Urine Urobilinogen <2.0 (<2.0) mg/dL Ur Leukocyte Esterase Negative (Negative) Disposition Clinical Impression: Dental abscess, Pelvic pain Disposition: HOME SELF-CARE Condition: Stable Instructions (If sedation given, give patient instructions): Dental Abscess (ED), Pelvic Pain in Women (ED) Additional Instructions: Please take the antibiotic as directed. Follow-up with your dentist for further management of your infected tooth. Have your ultrasound completed on Saturday. Return for any new or worsening symptoms Prescriptions: Amoxic-Pot Clav 875-125Mg [Augmentin 875-125] 1 tab PO BID 1 Days #14 tab Is patient prescribed a controlled substance at d/c from ED?: No Referrals: Ivan Bartlett Jr, [Primary Care Provider] - 1-2 days Time of Disposition: 16:06
[2023-09-16 13:50] LABS: Appearance,Urine Clear (Clear); Bilirubin,Urine Negative (Negative); Blood,Urine Negative (Negative); Color,Urine Yellow; Glucose,Urine (UA) Negative (Negative); Ketones,Urine Negative (Negative); Leukocyte Esterase,Urine Negative (Negative); Nitrite,Urine Negative (Negative); PH, Urine 5.5 (5.0-8.0); Protein,Urine Trace (Negative); Specific Gravity,Urine 1.028 (1.001-1.035); Urobilinogen,Urine <2.0 mg/dL (<2.0)
[2023-09-16 14:05] LABS: Basophils % (A) 1 %; Eosinophils # (A) 0.1 k/uL (0-0.7); Eosinophils % (A) 1 %; HCT 37.1 % (34.0-46.0); HGB 12.6 gm/dL (11.4-16.0); Lymphocytes # (A) 1.5 k/uL (1.0-4.8); Lymphocytes % (A) 26 %; MCHC 33.9 g/dL (31.0-37.0); MCV 91.4 fL (80.0-100.0); Mean Platelet Volume 7.3; Monocytes # (A) 0.3 k/uL (0-1.0); Monocytes % (A) 6 %; Neutrophils # (A) 3.7 k/uL (1.3-7.7); Neutrophils % (A) 63 %; Platelet Count 279 k/uL (150-450); RBC 4.06 m/uL (3.80-5.40); RDW 12.3 % (11.5-15.5); WBC 5.8 k/uL (3.8-10.6)
[2023-09-16 14:47] LABS: ALT 40 U/L (4-34); AST 46 U/L (14-36); African American GFR (CKD) >90 (>60 ml/min/1.73 sqM); Albumin 3.9 g/dL (3.5-5.0); Alkaline Phosphatase 108 U/L (38-126); Anion Gap 7 mmol/L; Blood Urea Nitrogen 12 mg/dL (7-17); Calcium 9.3 mg/dL (8.4-10.2); Carbon Dioxide 26 mmol/L (22-30); Chloride 105 mmol/L (98-107); Glucose 95 mg/dL (74-99); Lipase 80 U/L (23-300); Non-African American GFR(CKD) >90 (>60 ml/min/1.73 sqM); Potassium 4.1 mmol/L (3.5-5.1); Sodium 138 mmol/L (137-145); Total Bilirubin 0.4 mg/dL (0.2-1.3); Total Protein 6.9 g/dL (6.3-8.2)
--- NOTE | 2023-09-16 14:47 | US ---
EXAMINATION TYPE: US kidneys/renal and bladder DATE OF EXAM: 09/16/2023 COMPARISON: 12/22/2021 CLINICAL INDICATION: Female, 53 years old with history of lower abd pain, one kidney; Right nephrecto my EXAM MEASUREMENTS: Right Kidney: Surgically absent Left Kidney: 14.0 x 4.5 x 5.5 cm Post Void Residual Volume: NA mL Right Kidney: Surgically absent Left Kidney: wnl Bladder: Not fully distended Bilateral Jets seen: Not able to assess Normal Post Void Residual: NA IMPRESSION: 1. Right kidney surgically absent. 2. Compensatory hypertrophy of the left kidney measuring up to 14.0 cm. No hydronephrosis. 3. Underdistention of the bladder limits its evaluation.
--- NOTE | 2023-09-16 14:54 | US ---
EXAMINATION TYPE: US pelvic complete plus Dopplers DATE OF EXAM: 09/16/2023 COMPARISON: NONE CLINICAL INDICATION: Female, 53 years old with history of pain; TECHNIQUE: . Transabdominal sonographic images of the pelvis were acquired. Transvaginal sonographi c images were not medically necessary Date of LMP: 2003 EXAM MEASUREMENTS: Uterus: 6.0 x 3.4 x 4.4 cm Endometrial Stripe: 0.3 cm Right Ovary: 1.9 x 2.1 x 2.8 cm Left Ovary: 2.0 x 1.7 x 2.0 cm 1. Uterus: Anteverted but retroflexed . There is some focal contour lobulation along the anterior ut erine fundus/body measuring 2.5 x 0.9 x 1.9 cm that could represent a subtle subserosal fibroid. 2. Endometrium: wnl 3. Right Ovary: wnl 4. Left Ovary: wnl Spectral, color and waveform doppler imaging shows good arterial and venous flow within the ovaries ; there is no evidence for ovarian torsion. 5. Bilateral Adnexa: wnl 6. Posterior cul-de-sac: wnl IMPRESSION: 1. No sonographic evidence for ovarian torsion. 2. Thin endometrial stripe at 3 mm. 3. There may be a subtle 2.5 x 1.9 cm subserosal fibroid along the anterior uterine fundus/body. 4. No pelvic free fluid.
[2023-09-16 16:37] VITALS: BP 116/75; PULSE 74; RESP 16; TEMP 98
== END 2023-09-16 16:17 | disposition home or self-care (01) ==
LOC: EC 11:10
DX: K04.7 Periapical abscess without sinus (principal); R10.2 Pelvic and perineal pain; F32.A Depression, unspecified; F12.90 Cannabis use, unspecified, uncomplicated; Z79.899 Other long term (current) drug therapy; Z88.8 Allergy status to other drugs, medicaments and biological substances
CPT/HCPCS: 36415; 76770; 76856; 80053; 81003; 83690; 85025; 93975; 99284

== ENCOUNTER → 2023-09-18 | Outpatient (CLI) | payer OTHER | END | disposition home or self-care (01) | LOC: RADUSWWP 16:17 | PROVIDERS: ATTEND Internal Medicine Nephrology | DX: Z53.9 Procedure and treatment not carried out, unspecified reason (principal) ==

== ENCOUNTER 2023-09-25 11:10 | Day surgery (SDC) | payer OTHER ==
[2023-09-23 09:20] VITALS: BMI 21.9
[~2023-09-25 11:10] MED LIST: LIDOCAINE 1% (10MG/ML) FOR IV START INTRADERMA PRN
[2023-09-25] MEDS: LACTATED RINGERS 1,000 ML IV SCH (12:01)
[2023-09-25 12:14] VITALS: TEMP 97.9
[2023-09-25] MEDS ORDERED: LIDOCAINE 1% INJ 10MG/ML (20 ML MDV) ONE (12:31)
[2023-09-25] MEDS ORDERED: PROPOFOL 10 MG/ML 20 ML VIAL IV ONE (12:31)
--- NOTE | 2023-09-25 12:50 | P.PCN ---
Date of Procedure: 09/25/23 Procedure(s) Performed: BRIEF HISTORY: Patient is a 53-year-old pleasant white female scheduled for an elective colonoscopy as a part of screening for colon cancer and positive cologuard. PROCEDURE PERFORMED: Colonoscopy with snare polypectomy. PREOPERATIVE DIAGNOSIS: Screening for colon cancer and positive cologuard IV sedation per Anesthesia. PROCEDURE: After informed consent was obtained, the patient, was brought into the endoscopy unit. IV sedation was administered by Anesthesia under continuous monitoring. Digital rectal examination was normal. Initially the Olympus CF-160 flexible video colonoscope was then inserted in the rectum, gradually advanced into the cecum without any difficulty. Careful examination was performed as the scope was gradually being withdrawn. Ileocecal valve and the appendiceal orifice were visualized and appeared normal. Prep was excellent. Mucosa of the cecum, ascending colon, transverse colon, descending colon, sigmoid colon, and rectum appeared normal. In the proximal rectum there was a 7 mm polyp that was removed by snare polypectomy. Scattered similar diverticulosis Retroflexion was performed in the rectum and no lesions were seen. The patient tolerated the procedure well. IMPRESSION: 7 mm proximal rectal polyp status post snare polypectomy Scattered sigmoid diverticulosis RECOMMENDATIONS: Findings of this examination were discussed with the patient as well as her family. She was advised to follow with the biopsy results. If the biopsy reveals adenoma she can have a repeat colonoscopy in 5 years..
[2023-09-25 13:43] VITALS: BP 125/79; PULSE 66; RESP 18
== END 2023-09-25 13:31 | disposition home or self-care (01) ==
LOC: ORWHC2ENDO 11:10
PROVIDERS: ATTEND Internal Medicine Gastroenterology
DX: K62.1 Rectal polyp (principal); K57.30 Diverticulosis of large intestine without perforation or abscess without bleeding; Z79.899 Other long term (current) drug therapy
CPT/HCPCS: 88305; 45385; J2001; J2704

== ENCOUNTER → 2024-03-18 | Outpatient (CLI) | payer OTHER ==
--- NOTE | 2024-03-20 11:16 | MR ---
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 The patient was then given intravenous contrast and multi planar, T1 fat-saturation images wer e obtained. IV Contrast: 6 cc Gadavist FINDINGS: Postsurgical changes to the left calvarium inferiorly. Encephalomalacia/postsurgical change s of left temporal lobe. There are multiple dural based masses: * Right lateral calvarium measuring 8 x 11 mm, previously similar given differences in measuring lamar hnique. Series 801 image 95. * Right frontal calvarium measuring 16 mm which is also similar given differences in measuring techn ique. Left cerebellopontine pontine angle measuring 15 mm similar given differences in measuring tech nique. * Anterior falx lesion measuring 10 mm also similar to prior. Remote injury to the left frontal lobe with surrounding gliosis noted. Left cerebellar hemisphere whi te matter changes possibly from prior posttreatment change. No additional areas of abnormal postcontrast enhancement. No new lesions. The bone marrow signal is post surgical changes left calvarium. Paranasal sinuses and mastoid air cells: Mild scattered paranasal sinus disease. Visualized orbits: Orbital contents are intact. IMPRESSION: Stable by lateral dural based lesions. No new or enhancing lesions. No evidence for acute/subacute in farct.
== END | disposition home or self-care (01) ==
LOC: RADMRIMAIN 18:21
PROVIDERS: ATTEND Radiology Diagnostic Radiology
DX: G93.89 Other specified disorders of brain (principal); D32.9 Benign neoplasm of meninges, unspecified; H91.92 Unspecified hearing loss, left ear; Z98.890 Other specified postprocedural states
CPT/HCPCS: 70553; A9585

== ENCOUNTER → 2024-08-18 | Outpatient (CLI) | payer OTHER ==
--- NOTE | 2024-08-20 18:26 | MM ---
Reason for Exam: Screening (asymptomatic). Last mammogram was performed 1 year(s) and 9 month(s) ago. Patient History: Menarche at age 11. First Full-Term at age 15. Postmenopausal. Patient used Hormonal Contraceptives for 2 years. Risk Values: Angela 5 year model risk: 0.8%. NCI Lifetime model risk: 6.0%. Prior Study Comparison: 08/29/2020 Bilateral Screening Mammogram, [facility]. 10/06/2021 Bilateral Screening Mammogram, [facility]. 11/01/2022 Bilateral MG 3D screening mammo w/cad, [facility]. Tissue Density: The breasts are heterogeneously dense, which may obscure small masses. Findings: Analyzed By CAD. The pattern is symmetrical. No significant interval change No suspicious groups of microcalcifications, spiculated or lobular masses, architectural distortion or other secondary signs of malignancy are mammographically apparent. Overall Assessment: Benign, BI-RAD 2 Management: Screening Mammogram of both breasts in 1 year. A negative mammogram report should not preclude additional follow up of suspicious palpable abnormalities. Patient should continue monthly self breast exam. A clinical breast exam by your physician is recommended on an annual basis and results should be correlated with mammographic findings. Note on Angela scores and lifetime risk: 1. A Angela score greater than 3% is considered moderate risk. If this is the case, consider specialist referral to assess eligibility for a risk reducing agent. 2. If overall lifetime risk for the development of breast cancer is 20% or higher, the patient may qualify for future screening with alternating mammogram and breast MRI. [facility], , 08/20/2024 6:23 PM. Electronically signed and approved by: Guilherme Angel D.O. Radiologis
== END | disposition home or self-care (01) ==
LOC: RADMAMWWP 10:35
PROVIDERS: ATTEND Family Medicine
DX: Z12.31 Encounter for screening mammogram for malignant neoplasm of breast (principal); Z78.0 Asymptomatic menopausal state; R92.333 Mammographic heterogeneous density, bilateral breasts
CPT/HCPCS: 77067

== ENCOUNTER → 2024-09-04 | Outpatient (CLI) | payer OTHER ==
--- NOTE | 2024-09-04 12:00 | US ---
EXAMINATION TYPE: US liver DATE OF EXAM: 09/04/2024 COMPARISON: CT(08/24/2021) CLINICAL INDICATION: Female, 54 years old with history of R74.8 ELEVATED LIVER ENZYMES; Rt nephrectom y TECHNIQUE: Grayscale and color Doppler imaging of the right upper quadrant. FINDINGS: EXAM MEASUREMENTS: Liver Length: 12.2 cm Gallbladder Wall: 0.2 cm CBD: 0.5 cm, color Doppler imaging was utilized to isolate the common bile duct for measurement. Right Kidney: Surgically absent cm BUFFET ATTENDANT NOTES: partially limited exam due to overlying bowel Pancreas: Obscured by bowel gas Liver: slightly heterogeneous Gallbladder: No stones seen Evidence for sonographic Lacy's sign: No CBD: wnl Right Kidney: Surgically absent IMPRESSION: 1. No evidence for acute process. 2. Heterogenous liver echotexture compatible with hepatocellular disease. [facility], , 09/04/2024 11:58 AM
== END | disposition home or self-care (01) ==
LOC: RADUSWWP 11:17
PROVIDERS: ATTEND Family Medicine
DX: R74.8 Abnormal levels of other serum enzymes (principal); Z90.5 Acquired absence of kidney; K76.89 Other specified diseases of liver
CPT/HCPCS: 76705

== ENCOUNTER → 2024-10-22 | Outpatient (CLI) | payer OTHER ==
[2024-10-22 19:53] LABS: ALT 48 U/L (8-44); AST 42 U/L (13-35); Albumin 4.4 g/dL (3.8-4.9); Albumin/Globulin Ratio 1.83 Ratio (1.60-3.17); Alkaline Phosphatase 116 U/L (41-126); Blood Urea Nitrogen 17.4 mg/dL (9.0-27.0); Calcium 9.8 mg/dL (8.7-10.3); Carbon Dioxide 28.6 mmol/L (21.6-31.8); Chloride 104 mmol/L (96-109); Globulin 2.4 g/dL (1.6-3.3); Glucose 95 mg/dL (70-110); Potassium 4.7 mmol/L (3.5-5.5); Sodium 143 mmol/L (135-145); Total Bilirubin 0.3 mg/dL (0.3-1.2); Total Protein 6.8 g/dL (6.2-8.2)
== END | disposition home or self-care (01) ==
LOC: LABWHC1 12:45
PROVIDERS: ATTEND Internal Medicine Nephrology
DX: N17.9 Acute kidney failure, unspecified (principal)
CPT/HCPCS: 36415; 80053

== ENCOUNTER → 2024-12-08 | Outpatient (CLI) | payer OTHER ==
--- NOTE | 2024-12-08 16:20 | XR ---
EXAMINATION TYPE: XR cervical spine comp DATE OF EXAM: 12/08/2024 4:06 PM COMPARISON: 12/08/2024. CLINICAL INDICATION: Female, 54 years old with history of M54.2 CERVICALGIA; PHH, pain TECHNIQUE: The cervical spine was imaged in frontal, lateral, odontoid and bilateral oblique. FINDINGS: The osseous structures show normal alignment without evidence of an acute fracture. There are osteoph ytes noted throughout the cervical spine on the anterior and lateral aspects of the vertebral bodies. The intervertebral disk spaces are narrowed at multiple levels. Pedicles are intact. Soft tissues a re within normal limits. The odontoid appears intact. IMPRESSION: 1. No fracture or dislocation. 2. Mild degenerative disc disease changes of the cervical spine. [facility], , 12/08/2024 4:18 PM
== END | disposition home or self-care (01) ==
LOC: RADXRMAIN 15:55
DX: M50.30 Other cervical disc degeneration, unspecified cervical region (principal)
CPT/HCPCS: 72050